=== PATIENT | female | born 1975 | race Caucasian/White ===

== ENCOUNTER 2019-02-05 13:07 | Emergency (ER) | payer MEDICAID ==
[~2019-02-05] VITALS: Wt 67.0 kg
[2019-02-05] MEDS ORDERED: ONDANSETRON 4 MG INJ IV STA (17:10)
[2019-02-05] MEDS ORDERED: morphine 2 MG INJ IV STA (17:10)
[2019-02-05] MEDS ORDERED: SOD CHLORIDE 0.9% 1,000 ML IV STA (17:10)
[2019-02-05] MEDS ORDERED: IOHEXOL 300MG/ML 150 ML BTL ONE (18:15)
[2019-02-05] MEDS ORDERED: SOD CHLORIDE 0.9% 100 ML ONE (18:15)
[2019-02-05] MEDS ORDERED: POLY17PO6 PO (18:57)
[2019-02-05 19:10] VITALS: BP 124/82; PULSE 61; RESP 17
--- NOTE | 2019-02-05 19:44 | ERD ---
ER Documentation Chief Complaint Chief Complaint ap , flu since yesterday HPI 43-year-old female previously healthy presenting with cough for 1 month as well as right lower quadrant abdominal pain since yesterday. She states the pain comes and goes, no alleviating or exacerbating factors. It is aching, nonradiating, with no hematuria or dysuria. No associated fevers or chills. She does have associated constipation. With regard to her cough, she states she has been coughing for about 1 month but denies any shortness of breath or chest pain. ROS All systems reviewed and are negative except as per history of present illness. Medications Home Meds Active Scripts Polyethylene Glycol* (Miralax*) 17 Gm Powd.pack, 17 GM PO DAILY, #7 Prov:CHIKIS DE LOS SANTOS MD 02/05/19 PMhx/Soc Medical and Surgical Hx: pt denies Medical Hx, pt denies Surgical Hx Hx Alcohol Use: No Hx Substance Use: No Hx Tobacco Use: No Smoking Status: Never smoker FmHx Family History: No diabetes Physical Exam Vitals Vital Signs Date Temp Pulse Resp B/P (MAP) Pulse Ox O2 O2 Flow FiO2 Time Delivery Rate 02/05/19 98.0 61 17 124/82 100 19:10 (96) 02/05/19 98.4 62 16 137/83 100 Room Air 16:55 (101) 02/05/19 97.5 94 18 130/78 99 13:09 (95) Physical Exam Const: No acute distress, well-appearing, nontoxic Head: Atraumatic Eyes: Normal Conjunctiva ENT: Normal External Ears, Nose and Mouth. Neck: Full range of motion. No meningismus. Resp: Clear to auscultation bilaterally. No wheezing, rales, or rhonchi Cardio: Regular rate and rhythm, no murmurs Abd: Soft, right lower quadrant tenderness to palpation without rebound or guarding. Non distended. Normal bowel sounds Skin: No petechiae or rashes Back: No midline or flank tenderness Ext: No cyanosis, or edema Neur: Awake and alert Psych: Normal Mood and Affect Result Diagram: 02/05/19 1733 02/05/19 1733 Results 24 hrs Laboratory Tests Test 02/05/19 17:28 02/05/19 17:30 02/05/19 17:33 POC Beta HCG, Qualitative NEGATIVE Urine Color STRAW Urine Clarity CLEAR Urine pH 6.0 Urine Specific [place] 1.006 Urine Ketones NEGATIVE mg/dL Urine Nitrite NEGATIVE mg/dL Urine Bilirubin NEGATIVE mg/dL Urine Urobilinogen NEGATIVE mg/dL Urine Leukocyte Esterase NEGATIVE Rock/ul Urine Microscopic RBC 0 /HPF Urine Microscopic WBC 0 /HPF Urine Squamous Epithelial Cells FEW /HPF Urine Bacteria FEW /HPF Urine Hemoglobin 1+ mg/dL Urine Glucose NEGATIVE mg/dL Urine Total Protein NEGATIVE mg/dl White Blood Count 8.1 10^3/ul Red Blood Count 4.55 10^6/ul Hemoglobin 13.2 g/dl Hematocrit 40.6 % Mean Corpuscular Volume 89.2 fl Mean Corpuscular Hemoglobin 29.0 pg Mean Corpuscular 32.5 g/dl Hemoglobin Concent Red Cell Distribution Width 12.5 % Platelet Count 281 10^3/UL Mean Platelet Volume 10.5 fl Immature Granulocytes % 0.400 % Neutrophils % 52.7 % Lymphocytes % 26.5 % Monocytes % 6.1 % Eosinophils % 13.3 % Basophils % 1.0 % Nucleated Red Blood Cells % 0.0 /100WBC Immature Granulocytes # 0.030 10^3/ul Neutrophils # 4.3 10^3/ul Lymphocytes # 2.1 10^3/ul Monocytes # 0.5 10^3/ul Eosinophils # 1.1 10^3/ul Basophils # 0.1 10^3/ul Nucleated Red Blood Cells # 0.0 10^3/ul Prothrombin Time 12.1 Sec Prothrombin Time Ratio 0.9 INR International 0.89 Normalized Ratio Activated Partial Thromboplast 29.4 Sec Time Sodium Level 142 mmol/L Potassium Level 4.0 mmol/L Chloride Level 106 mmol/L Carbon Dioxide Level 28 mmol/L Anion Gap 8 Blood Urea Nitrogen 13 mg/dl Creatinine 0.67 mg/dl Est Glomerular Filtrat > 60 mL/min Rate mL/min Glucose Level 106 mg/dl Calcium Level 9.7 mg/dl Total Bilirubin 0.3 mg/dl Direct Bilirubin 0.00 mg/dl Indirect Bilirubin 0.3 mg/dl Aspartate Amino Transf (AST/SGOT) 24 IU/L Alanine 12 IU/L Aminotransferase (ALT/SGPT) Alkaline Phosphatase 75 IU/L Total Protein 8.6 g/dl Albumin 4.5 g/dl Globulin 4.10 g/dl Albumin/Globulin Ratio 1.09 Current Medications Medications Dose Sig/Dio Start Time Status Last (Trade) Ordered Route PRN Stop Time Admin Dose Reason Admin Sodium 1,000 ml @ Q1H STAT 02/05/19 DC 02/05/19 Chloride 1,000 mls/hr IV 17:10 02/05/19 17:36 18:09 Morphine 2 mg ONCE STAT 02/05/19 DC 02/05/19 Sulfate IV 17:10 02/05/19 17:36 (morphine) 17:13 Ondansetron 4 mg ONCE STAT 02/05/19 DC 02/05/19 HCl (Zofran IV 17:10 02/05/19 17:36 Inj) 17:13 IV Flush 10 ml STK-MED 02/05/19 DC (NS 10 ml) ONCE .ROUTE 18:15 02/05/19 18:16 Sodium 100 ml @ ud STK-MED 02/05/19 DC Chloride ONCE .ROUTE 18:15 02/05/19 18:16 Iohexol 150 ml STK-MED 02/05/19 DC (Omnipaque ONCE .ROUTE 18:15 02/05/19 300mg/ ml) 18:16 Procedures/MDM EMERGENT LABS AND DIAGNOSTIC STUDIES: Lab Results above were reviewed and interpreted by me. CBC: no anemia or evidence of infection CMP: No evidence of clinically significant electrolyte abnormality, acidosis, renal failure, hypoglycemia, liver disease, or biliary obstruction UA: Microscopic hematuria noted. Unclear etiology. No evidence of infection Radiology Results as interpreted by Radiology below were reviewed by Tk De Los Santos MD: CT abdomen and pelvis shows no acute abnormalities Chest x-ray shows no significant abnormalities Initial Nursing notes reviewed. Previous Medical Records requested via the Electronic Health Record. EMERGENCY DEPARTMENT COURSE / MEDICAL DECISION MAKING: Patient presents with complaints of right lower quadrant pain and cough for 1 month. Vitals were unremarkable. Labs did not show any significant abnormalities. CT of abdomen and pelvis was done to evaluate for possible appendicitis. However CT was normal. Chest x-ray does not show evidence of pneumonia or other significant abnormalities. I suspect she likely has a viral bronchitis. Doubt pulmonary embolism or TB. At this time there is no evidence of acute surgical abdomen. Patient was reassured. I discussed the results with her. She was encouraged to return for any worsening symptoms. I also gave her a list of clinics where she can follow-up outpatient. Patient is happy with the discharge plan. Patient's blood pressure was elevated (>120/80) but appears stable without evidence of hypertensive emergency or urgency. The patient was counseled about the risks of hypertension and urged to pursue outpatient monitoring and therapy within a week with their primary care physician. Departure Diagnosis: Primary Impression: Abdominal pain Abdominal location: right lower quadrant Qualified Codes: R10.31 - Right lower quadrant pain Additional Impressions: Constipated Constipation type: unspecified constipation type Qualified Codes: K59.00 - Constipation, unspecified Chronic cough Condition: Stable Patient Instructions: Abdominal Pain, Treating Constipation, Constipation (Adult) Referrals[facility] Usted se rojo hecho un examen mdico de control que le indica que no est en padilla condicin que requiera tratamiento urgente en el Departamento de Emergencia. Un estudio ms profundo y el tratamiento de shaver condicin pueden esperar sin ningn riesgo hasta que usted sea atendida/o en el consultorio de shaver mdico o padilla clnica. Es responsabilidad suya arreglar padilla yash para el seguimiento del holger. MANEJO DE CONDICIONES NO URGENTES EN EL FUTURO 1) Si usted tiene un mdico de atencin primaria: Usted debera llamar a shaver mdico de atencin primaria antes de venir al departamento de emergencia. Despus de las horas de consultorio, shaver doctor o shaver asociado/a est disponible por telfono. El mdico o enfermero de gloria en el servicio telefnico puede asesorarle por bacilio medio para atender el problema, o holger contrario se puede programar padilla yash. 2) Si usted no tiene un mdico de atencin primaria: Llame al mdico o clnica de referencia que aparece abajo raegan las horas de consultorio para hacer padilla yash para que le vean. CLINICAS: [facility] [phone] [id number] [facility] [phone] [address] [facility] [phone] [place] [id number] [phone] [facility]. [place] [address] [phone] [facility] [phone] [address] Additional Instructions: Compra Milk of Magnesia para shaver contipation y usa cuando tienes constipation. Regresa a la fauzia de emergencias si estas empeorando. CHIKIS DE LOS SANTOS MD Feb 05, 2019 19:44
== END 2019-02-05 19:10 | disposition home or self-care (01) ==
LOC: E/R 13:07
DX: K59.00 Constipation, unspecified (principal); R05 Cough
CPT/HCPCS: 36415; 71045; 74177; 80053; 81001; 81025; 85025; 85610; 85730; 96374; 96375; J2270; J2405; J7030; Q9967; Z7502; Z7610